=== PATIENT | female | born 1985 | race African-American/Black ===

== ENCOUNTER 2016-06-17 14:56 | Emergency (ER) | payer BC ==
[~2016-06-17] VITALS: Ht 167.6 cm; Wt 71.8 kg
[~2016-06-17 14:56] MED LIST: NOHOMEMEDS
[2016-06-17 15:49] LABS: HEMATOCRIT 39.8 % (36.0-46.0); MCHC 33.4 G/DL (30.0-36.0); MCV 86.9 FL (83-99); MEAN PLAT.VOLUME 9.4 uM^3 (9.5-12.4); PLATELET COUNT 338 K/uL (156-360); RBC DIS.WIDTH-CV 12.7 % (11.8-14.6); RBC DIS.WIDTH-SD 39.7 % (39-53); RED BLOOD COUNT 4.58 M/uL (3.80-5.20); WHITE BLOOD COUNT 5.4 K/uL (4.1-10.2)
[2016-06-17 16:04] LABS: CHLORIDE 106 mEq/L (99-109); POTASSIUM 3.8 mEq/L (3.7-5.4); SODIUM 139 mEq/L (136-147)
[2016-06-17 16:06] LABS: GLUCOSE 76 mg/dL (70-99)
[2016-06-17 16:07] LABS: ANION GAP 7 MEQ/L (2-14)
[2016-06-17 16:08] LABS: TOTAL BILIRUBIN 0.4 mg/dL (0.0-1.0)
[2016-06-17 16:09] LABS: ALKALINE PHOSPHATASE 69 IU/L (3-129)
[2016-06-17 16:10] LABS: GFR ESTIMATE (CALCULATED) > 59 mL/min/
[2016-06-17 16:11] LABS: UREA NITROGEN (BUN) 16 mg/dL (9-23)
[2016-06-17 16:13] LABS: LIPASE 67 U/L (1.0-51.0)
[2016-06-17 16:19] LABS: QUANTITATIVE HCG < 4.0 MIU/ML
[2016-06-17 16:23] LABS: ADD MIUA? YES; BILIRUBIN NEGATIVE; BLOOD NEGATIVE; COLOR YELLOW ((YELLOW)); GLUCOSE (STRIP) NEGATIVE; KETONES NEGATIVE; LEUKOCYTES NEGATIVE; NITRITE NEGATIVE; PROTEIN (STRIP) NEGATIVE; SPECIFIC GRAVITY 1.024 (1.000-1.030); UROBILINOGEN 0.2 MG/DL (0.2-1.0)
[2016-06-17 16:29] LABS: BACTERIA NONE SEEN /HPF; EPITHELIAL CELLS 1+ /HPF; MUCUS TRACE /LPF; RED BLOOD CELLS 0-5 /HPF (0-5); UCUL ADDED? NO; WHITE BLOOD CELLS 0-5 /HPF (0-5)
[2016-06-17] MEDS ORDERED: MOTRIN800 MG PO (19:02)
[2016-06-17 19:32] VITALS: BP 109/65
== END 2016-06-17 19:33 | disposition home or self-care (01) ==
LOC: EME 14:56
DX: R07.89 Other chest pain (principal); K85.90 Acute pancreatitis without necrosis or infection, unspecified
CPT/HCPCS: 74022; 80053; 81003; 83690; 84702; 85027; 99281; 99284; J1885